=== PATIENT | female | born 1940 | race Caucasian/White ===

== ENCOUNTER 2020-11-20 06:20 | Day surgery (SDC) | payer MEDICARE, SELFPAY ==
[2020-11-16 11:16] VITALS: BMI 19.4
--- NOTE | 2020-11-16 16:30 | MHC.SHP ---
Pre-Procedural Eval Section A Date of Service: 11/16/20 The patient is an INPATIENT: No Changes since office visit: No Cold of Flu in the past 2 weeks, No New Medical Problems, No Changes in Medication and No Patient answered all questions The History & Physical has been completed within 30 days and I have reviewed it.: Yes Section B Chief Complaint: Cataract Left Eye Allergies: Allergies Allergy/AdvReac Type Severity Reaction Status Date / Time bee pollen [bee stings] Allergy Anaphylaxis Verified 11/16/20 11:03 Beta-Blockers Allergy severe Verified 11/16/20 11:03 (Beta-Adrenergic Bloc bradycardia fish derived [fish] Allergy Anaphylaxis Verified 11/16/20 11:03 lisinopril Allergy severe Verified 11/16/20 11:03 baradycardia perfume Allergy Cough Verified 11/16/20 11:12 shellfish derived Allergy Anaphylaxis Verified 11/16/20 11:03 Kkmzijk-Gon-Dzd Reductase Allergy severe Verified 11/16/20 11:03 Inhibitor bradycardia pumpkin AdvReac Gastrointestinal Verified 11/16/20 11:03 Upset Plan Diagnosis/Plan: Unchanged I have reviewed the history and physical and performed a pertinent physical examination on my patient. No changes have occurred unless specified.
--- NOTE | 2020-11-17 08:32 | HO.ANESPROP2 ---
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 Hepatic hemangioma History of blood transfusion History of colon cancer HTN (hypertension) Lumbar disc disorder Numbness and tingling of foot OAB (overactive bladder) Osteopenia Spinal stenosis Surgical History Surgical History (Updated 11/16/20 @ 11:14 by Guillermina Goddard RN) History of colon resection History of esophagogastroduodenoscopy (EGD) Hx of arthroscopy of left knee Hx of colonoscopy Hx of parathyroidectomy Social History Social History Patient Tobacco Use Status: Never used Tobacco Use of substances other than those prescribed or required for medical reasons: No Are you DNR?: No Advance Directives: No Advance Directives Information Provided: No Advance Directives on File: No Meds Allergies Allergy/AdvReac Type Severity Reaction Status Date / Time bee pollen [bee stings] Allergy Anaphylaxis Verified 11/20/20 07:29 Beta-Blockers Allergy severe Verified 11/20/20 07:29 (Beta-Adrenergic Bloc bradycardia fish derived [fish] Allergy Anaphylaxis Verified 11/20/20 07:29 lisinopril Allergy severe Verified 11/20/20 07:29 baradycardia perfume Allergy Cough Verified 11/20/20 07:29 shellfish derived Allergy Anaphylaxis Verified 11/20/20 07:29 Ycllibi-Ulu-Bip Reductase Allergy severe Verified 11/20/20 07:29 Inhibitor bradycardia pumpkin AdvReac Gastrointestinal Verified 11/20/20 07:29 Upset Home Medications Medication Instructions Recorded Confirmed Last Taken Type acalabrutinib 100 mg capsule mg PO 11/20/20 Unknown History (Calquence) chlorthalidone 50 mg tablet 1 tab PO DAILY 11/20/20 11/20/20 Unknown History flecainide 100 mg tablet 1 tab PO BID 11/20/20 11/20/20 11/20/20 05:30 History losartan 50 mg tablet 1 tab PO DAILY 11/20/20 11/20/20 11/20/20 05:30 History verapamil 120 mg tablet,extended tab PO 11/20/20 11/20/20 05:30 History release Exam Exam Date and Time: November 17, 2020 0832 Height,Weight and Vital Signs: Height 5 ft 8 in Weight 58.06 kg Assessment and Plan Assessment Anesthesia Assessment: Chart Reviewed Documented by User: Adelaida Gamino MD 11/20/20 07:49 PMF Past Medical History Medical History (Updated 11/16/20 @ 11:18 by Guillermina Goddard, RN) Arrhythmia Cataract Cervical disc disorder CLL (chronic lymphocytic leukemia) COVID-19 vaccine series completed Facial asymmetry 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 Hepatic hemangioma History of blood transfusion History of colon cancer HTN (hypertension) Lumbar disc disorder Numbness and tingling of foot OAB (overactive bladder) Osteopenia Spinal stenosis Family History Family history of problems with anesthesia: No Surgical History Surgical History (Updated 11/16/20 @ 11:14 by Guillermina Goddard RN) History of colon resection History of esophagogastroduodenoscopy (EGD) Hx of arthroscopy of left knee Hx of colonoscopy Hx of parathyroidectomy History of Problems with Anesthesia: No Social History Social History Patient Tobacco Use Status: Never used Tobacco Use of substances other than those prescribed or required for medical reasons: No Are you DNR?: No Advance Directives: No Advance Directives Information Provided: No Advance Directives on File: No Meds Allergies Allergy/AdvReac Type Severity Reaction Status Date / Time bee pollen [bee stings] Allergy Anaphylaxis Verified 11/20/20 07:29 Beta-Blockers Allergy severe Verified 11/20/20 07:29 (Beta-Adrenergic Bloc bradycardia fish derived [fish] Allergy Anaphylaxis Verified 11/20/20 07:29 lisinopril Allergy severe Verified 11/20/20 07:29 baradycardia perfume Allergy Cough Verified 11/20/20 07:29 shellfish derived Allergy Anaphylaxis Verified 11/20/20 07:29 Hvjvchb-Tes-Vot Reductase Allergy severe Verified 11/20/20 07:29 Inhibitor bradycardia pumpkin AdvReac Gastrointestinal Verified 11/20/20 07:29 Upset Home Medications Medication Instructions Recorded Confirmed Last Taken Type acalabrutinib 100 mg capsule mg PO 11/20/20 Unknown History (Calquence) chlorthalidone 50 mg tablet 1 tab PO DAILY 11/20/20 11/20/20 Unknown History flecainide 100 mg tablet 1 tab PO BID 11/20/20 11/20/20 11/20/20 05:30 History losartan 50 mg tablet 1 tab PO DAILY 11/20/20 11/20/20 11/20/20 05:30 History verapamil 120 mg tablet,extended tab PO 11/20/20 11/20/20 05:30 History release Exam Airway Mallampati Class: III TM Dist: >3cm Neck ROM: Full Heart: rrr Lungs: cta Assessment and Plan Assessment Anesthesia Assessment: Anesthesia Plan Discussed and Chart Reviewed Final Anesthetic Review Family History of Problems with Anesthesia: No History of Problems with Anesthesia: No NPO: Yes (Sip water with meds) ASA Class: III Final Preanesthetic Review: No Changes in Pt Med Stat, Meds/Allgs Chart Reviewed and Consent Obtained/Reviewed Patient Risk: Intermediate Procedure Risk: Intermediate Anesthetic Plan Anesthetic Plan: MAC: Disposition: Standard PACU
[2020-11-20 07:31] VITALS: BP 156/50; PULSE 66; RESP 16; TEMP 36.7; O2SAT 98
[2020-11-20] MEDS: Tetracaine HCl/PF 0.5% Oph Sol 4 ML DROPS 1 DROP EYE-LEFT (07:37)
[2020-11-20] MEDS: Tropicamide 1 % Ophth Sol 3 ML BTL 1 DROP EYE-LEFT ×3 (07:39→08:01)
[2020-11-20] MEDS: Lactated Ringers 500 ML 50 ML IV (07:47)
[2020-11-20] MEDS: Phenylephrine HCL 2.5% Oph SoL 2 ML BOTTLE 1 DROP EYE-LEFT ×3 (07:48→08:06)
--- NOTE | 2020-11-20 08:51 | HO.PNOPHT ---
Ophthalmology Procedure Procedure Date of Service: 11/20/20 Ophthalmology Viscoelastic: Healon Duet Dual Pack Pro Ophthalmology Lenses: TECCHRIS [id number] (22) Procedure Notes: PREOPERATIVE DIAGNOSIS: Decreased visual acuity left eye secondary to cataract POSTOPERATIVE DIAGNOSIS: Same PROCEDURE: Left cataract extraction with intraocular lens insertion SURGEON: Dwaine Luna M.D. ANESTHESIA: Topical/MAC ESTIMATED BLOOD LOSS: None COMPLICATIONS: None After obtaining informed consent, the patient was brought to the operation room suite and placed in the supine position. After adequate sedation per anesthesia, topical drops of Tetracaine were given to the left eye. The eye was then prepped and draped in the usual sterile fashion. The operating room microscope was then positioned over the operative eye and a lid speculum placed. A paracentesis was created. Viscoelastic was then instilled into the anterior chamber. A three plane incision was then created temporally, utilizing a 2.85 mm keratome. Capsulotomy forceps were then utilized to create a circular tear capsulotomy. Hydrodissection and hydrodelineation were carried out until adequate mobilization of the nucleus occurred. Phacoemulsification was then utilized to remove the dense central nucleus followed by removal of the cortical material utilizing the automated aspiration irrigation unit. Viscoat elastic was instilled into the posterior capsular bag followed by placement of a posterior chamber intraocular lens without difficulty. The residual Viscoat elastic was then removed utilizing the automated IA machine. The wound was check and found to be watertight. The patient tolerated the procedure well and the lid speculum was removed. Intracameral injection of Vigamox 0.1 mL followed by a subtenon injection of Kenalog-40 0.2 mL were administered. The patient will be seen in the a.m.
[2020-11-20 09:14] VITALS: BP 143/60; PULSE 59; RESP 16; TEMP 36.6; O2SAT 99
== END 2020-11-20 09:23 | disposition home or self-care (01) ==
PROVIDERS: PCP Pediatrics; Visit Provider Ophthalmology
PROC: (CPT 66985; principal; 2020-11-20 09:20)
DX: H25.12 Age-related nuclear cataract, left eye (principal); I10 Essential (primary) hypertension; Z79.899 Other long term (current) drug therapy
CPT/HCPCS: 66984; J2250; J3010; J3300; V2632

== ENCOUNTER 2020-12-04 07:45 | Day surgery (SDC) | payer MEDICARE, SELFPAY ==
[2020-11-16 11:18] VITALS: BMI 19.4
--- NOTE | 2020-11-29 14:14 | MHC.SHP ---
Pre-Procedural Eval Section A Date of Service: 11/29/20 The patient is an INPATIENT: No Changes since office visit: No Cold of Flu in the past 2 weeks, No New Medical Problems, No Changes in Medication and No Patient answered all questions The History & Physical has been completed within 30 days and I have reviewed it.: Yes Section B Chief Complaint: Cataract Right Eye Allergies: Allergies Allergy/AdvReac Type Severity Reaction Status Date / Time bee pollen [bee stings] Allergy Anaphylaxis Verified 11/20/20 07:29 Beta-Blockers Allergy severe Verified 11/20/20 07:29 (Beta-Adrenergic Bloc bradycardia fish derived [fish] Allergy Anaphylaxis Verified 11/20/20 07:29 lisinopril Allergy severe Verified 11/20/20 07:29 baradycardia perfume Allergy Cough Verified 11/20/20 07:29 shellfish derived Allergy Anaphylaxis Verified 11/20/20 07:29 Hogsusb-Dza-Kty Reductase Allergy severe Verified 11/20/20 07:29 Inhibitor bradycardia pumpkin AdvReac Gastrointestinal Verified 11/20/20 07:29 Upset Plan Diagnosis/Plan: Unchanged I have reviewed the history and physical and performed a pertinent physical examination on my patient. No changes have occurred unless specified.
[2020-12-04 08:51] VITALS: BP 159/65; PULSE 62; RESP 18; TEMP 36.1; O2SAT 99
[2020-12-04] MEDS: Tropicamide 1 % Ophth Sol 3 ML BTL 1 DROP EYE-RIGHT ×3 (08:57→09:06)
[2020-12-04] MEDS: Tetracaine HCl/PF 0.5% Oph Sol 4 ML DROPS 1 DROP EYE-RIGHT (08:57)
[2020-12-04] MEDS: Phenylephrine HCL 2.5% Oph SoL 2 ML BOTTLE 1 DROP EYE-RIGHT ×3 (09:02→09:08)
[2020-12-04] MEDS: Lactated Ringers 500 ML 20 ML IVCONT (09:06)
--- NOTE | 2020-12-04 09:16 | P.CONAN_ITS ---
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 Hepatic hemangioma History of blood transfusion History of colon cancer HTN (hypertension) Lumbar disc disorder Numbness and tingling of foot OAB (overactive bladder) Osteopenia Spinal stenosis Family History Family history of problems with anesthesia: No Surgical History Surgical History History of colon resection History of esophagogastroduodenoscopy (EGD) Hx of arthroscopy of left knee Hx of colonoscopy Hx of parathyroidectomy History of Problems with Anesthesia: No Social History Social History Patient Tobacco Use Status: Never used Tobacco Use of substances other than those prescribed or required for medical reasons: No Are you DNR?: No Advance Directives: No Advance Directives Information Provided: No Advance Directives on File: No Meds Allergies Allergy/AdvReac Type Severity Reaction Status Date / Time bee pollen [bee stings] Allergy Anaphylaxis Verified 11/20/20 07:29 Beta-Blockers Allergy severe Verified 11/20/20 07:29 (Beta-Adrenergic Bloc bradycardia fish derived [fish] Allergy Anaphylaxis Verified 11/20/20 07:29 lisinopril Allergy severe Verified 11/20/20 07:29 baradycardia perfume Allergy Cough Verified 11/20/20 07:29 shellfish derived Allergy Anaphylaxis Verified 11/20/20 07:29 Iwvgkiw-Iel-Czk Reductase Allergy severe Verified 11/20/20 07:29 Inhibitor bradycardia pumpkin AdvReac Gastrointestinal Verified 11/20/20 07:29 Upset Active Medications: Current Medications Lactated Ringer's (Lr) 500 mls @ 20 mls/hr IVCONT .Q24H PREM Last Admin: 12/04/20 09:06 Dose: 20 mls/hr Documented by: Povidone Iodine (Povidone Iodine 5 % Ophth Soln 30 Ml Bottle) 1 appl EYE-RIGHT PREOP PRN PRN Reason: Pre-Op Surgical Implant Prophy Home Medications Medication Instructions Recorded Confirmed Last Taken Type acalabrutinib 100 mg capsule mg PO 11/20/20 Unknown History (Calquence) chlorthalidone 50 mg tablet 1 tab PO DAILY 11/20/20 11/20/20 Unknown History flecainide 100 mg tablet 1 tab PO BID 11/20/20 11/20/20 11/20/20 05:30 History losartan 50 mg tablet 1 tab PO DAILY 11/20/20 11/20/20 11/20/20 05:30 History verapamil 120 mg tablet,extended tab PO 11/20/20 11/20/20 05:30 History release Exam Exam Date and Time: December 04, 2020 0916 Height,Weight and Vital Signs: Height 5 ft 8 in Weight 58.06 kg Last Vital Signs Temp 97.0 F 12/04/20 08:51 Pulse 62 12/04/20 08:51 Resp 18 12/04/20 08:51 BP 159/65 H 12/04/20 08:51 Pulse Ox 99 12/04/20 08:51 Airway Mallampati Class: II TM Dist: >3cm Neck ROM: Full Assessment and Plan Assessment Anesthesia Assessment: Anesthesia Plan Discussed and Chart Reviewed Final Anesthetic Review Family History of Problems with Anesthesia: No History of Problems with Anesthesia: No NPO: Yes ASA Class: III Final Preanesthetic Review: No Changes in Pt Med Stat, Meds/Allgs Chart Reviewed, Consent Obtained/Reviewed and Anes Risks/Benef Reviewed Patient Risk: Intermediate Procedure Risk: Low Assessment/Block/Sedation in SS: Assess/Block/Sedation-SS Anesthetic Plan Anesthetic Plan: MAC: Disposition: Standard PACU
--- NOTE | 2020-12-04 09:45 | HO.PNOPHT ---
Ophthalmology Procedure Procedure Date of Service: 12/04/20 Ophthalmology Viscoelastic: Healon Duet Dual Pack Pro Ophthalmology Lenses: TECNIS [id number] (22.5) Procedure Notes: PREOPERATIVE DIAGNOSIS: Decreased visual acuity right eye secondary to cataract POSTOPERATIVE DIAGNOSIS: Same PROCEDURE: Right cataract extraction with intraocular lens insertion SURGEON: Dwaine Luna M.D. ANESTHESIA: Topical/MAC ESTIMATED BLOOD LOSS: None COMPLICATIONS: None After obtaining informed consent, the patient was brought to the operating room suite and placed in the supine position. After adequate sedation per anesthesia, topical drops of Tetracaine were given to the right eye. The eye was then prepped and draped in the usual sterile fashion. The operating room microscope was then positioned over the operative eye and a lid speculum placed. A paracentesis was created. Viscoelastic was then instilled into the anterior chamber. A three plane incision was then created temporally, utilizing a 2.85 mm keratome. Capsulotomy forceps were then utilized to create a circular tear capsulotomy. Hydrodissection and hydrodelineation were carried out until adequate mobilization of the nucleus occurred. Phacoemulsification was then utilized to remove the dense central nucleus followed by removal of the cortical material utilizing the automated aspiration irrigation unit. Viscoelastic was instilled into the posterior capsular bag followed by placement of a posterior chamber intraocular lens without difficulty. The residual Viscoelastic was then removed utilizing the automated IA machine. The wound was checked and found to be watertight. The patient tolerated the procedure well and the lid speculum was removed. Intracameral injection of Vigamox 0.1 mL followed by a subtenon injection of Kenalog-40 0.2 mL were administered. The patient will be seen in the a.m.
[2020-12-04 10:17] VITALS: BP 159/67; PULSE 61; RESP 18; TEMP 36.9; O2SAT 100
== END 2020-12-04 10:26 | disposition home or self-care (01) ==
PROVIDERS: PCP Pediatrics; Visit Provider Ophthalmology
PROC: (CPT 66985; principal; 2020-12-04 10:00)
DX: H25.11 Age-related nuclear cataract, right eye (principal); H52.4 Presbyopia; H35.3232 Exudative age-related macular degeneration, bilateral, with inactive choroidal neovascularization; Z83.511 Family history of glaucoma; I10 Essential (primary) hypertension; C91.10 Chronic lymphocytic leukemia of B-cell type not having achieved remission; M85.80 Other specified disorders of bone density and structure, unspecified site; Z79.899 Other long term (current) drug therapy; Z88.8 Allergy status to other drugs, medicaments and biological substances
CPT/HCPCS: 66984; J2250; J3010; J3300; V2632